=== PATIENT | female | born 1950 | race Caucasian/White ===

== ENCOUNTER 2021-07-29 10:31 | Outpatient (CLI) | payer OTHER ==
[2021-07-29] MEDS ORDERED: IOHEXOL 350 mgI/mL, 150 ML INFUS..BTL IV ONE (11:01)
== END 2021-07-29 20:33 | disposition home or self-care (01) ==
LOC: SCT 10:31
PROVIDERS: ATTEND Family Medicine
DX: I72.8 Aneurysm of other specified arteries (principal); N28.1 Cyst of kidney, acquired; N28.89 Other specified disorders of kidney and ureter; K76.89 Other specified diseases of liver
CPT/HCPCS: 72191; 74175; 76376; Q9967